=== PATIENT | male | born 1970 | race Caucasian/White ===

== ENCOUNTER 2023-12-23 19:18 | Emergency (ER) | payer OTHER, SELFPAY ==
[2023-12-23 19:23] VITALS: BP 157/113; PULSE 99; RESP 17; TEMP 36.1; O2SAT 98; BMI 36.1
--- NOTE | 2023-12-23 19:51 | DI.RAD.S_ITS ---
PROCEDURE: XR CHEST 1V INDICATIONS: HTN TECHNIQUE: One view of the chest was acquired. COMPARISON: None. FINDINGS: Surgical changes and devices: None. Lungs and pleura: On this semiupright portable chest examination, no large pneumothorax or large pleural effusions are seen. No focal infiltrates are seen. Mediastinum: The cardiac contours are within normal limits. The aorta demonstrates calcification and tortuosity. Bones and chest wall: No suspicious bony lesions. Age-appropriate bony degenerative changes are seen. Overlying soft tissues appear unremarkable. IMPRESSION: Portable chest within normal limits for age. Dictated by: Frank Barnes M.D. on 12/23/2023 at 19:32 Approved by: Frank Barnes M.D. on 12/23/2023 at 19:33
--- NOTE | 2023-12-23 20:10 | EKG_ITS ---
[address] [address] Test Date: 2023-12-23 Pat Name: Mamadou Acevedo Department: [facility] Room: Gender: Male [employer] Developer: CHECO : 1970 Requested By: Order Number: [id number] Reading MD: Gonzales Cain MD Measurements Intervals [place] Rate: 89 P: 62 [place]: 154 QRS: 23 QRSD: 102 T: 48 QT: 380 QTc: 462 Interpretive Statements Normal sinus rhythm Electronically Signed On 12-24-2023 8:35:59 PDT by Gonzales Cain MD
[2023-12-23 20:13] VITALS: PULSE 93; O2SAT 97
[2023-12-23 20:14] VITALS: BP 181/116; PULSE 93; O2SAT 96
[2023-12-23 20:15] LABS: Add Manual Diff / Slide Review NO; Basophils Absolute Auto 100 /uL (0-100); Eosinophils Absolute Auto 400 /uL (0-450); Eosinophils Percent Auto 3.3 % (2-4); Hematocrit 40.3 % (41-53); Hemoglobin 13.7 g/dL (13.5-17.5); Lymphocytes Absolute Auto 3300 /uL (1100-4500); Lymphocytes Percent Auto 30.4 % (25-40); Mean Corpuscular HGB Conc 34.1 % (30-36); Mean Corpuscular Hemoglobin 29.7 PG (26-34); Monocytes Absolute Auto 900 /uL (0-900); Monocytes Percent Auto 7.9 % (3-14); Neutrophils Absolute Auto 6200 /uL (1500-7000); Neutrophils Percent Auto 57.4 % (50-75); Platelet Count 338 X10^3/uL (150-400); Red Blood Cell Count 4.63 X10^6/uL (4.5-5.9); Red Cell Distribution Width 13.7 % (11.6-14.8); White Blood Cell Count 10.9 X10^3/uL (4.5-11.0)
[2023-12-23 20:26] LABS: Alanine Aminotransferase 21 IU/L (<50); Albumin Globulin Ratio 1.4 (1.0-2.8); Alkaline Phosphatase 65 U/L (38-126); Aspartate Aminotransferase 24 IU/L (17-59); BUN Creatinine Ratio 12.9 (6-22); Bilirubin Total 0.5 mg/dL (0.2-1.3); Blood Urea Nitrogen 18 mg/dL (9-20); Calcium 8.5 mg/dL (8.4-10.2); Carbon Dioxide 30 mmol/L (22-32); Chloride 103 mmol/L (98-107); Creatine Kinase 111 U/L (55-170); Estimated Glomerular Filt Rate 59 mL/min (>60); Globulin 2.8 g/dL (1.7-4.1); Glucose 104 mg/dL (70-100); HEMOLYSIS 28 (0-50); Lipase 108 U/L (23-300); Potassium 3.3 mmol/L (3.4-5.1); Sodium 139 mmol/L (137-145); Total Protein 6.8 g/dL (6.3-8.2)
[2023-12-23 20:30] VITALS: PULSE 94; RESP 21; O2SAT 95
[2023-12-23 20:31] VITALS: BP 179/107; PULSE 92; RESP 16; O2SAT 95
--- NOTE | 2023-12-23 20:36 | PC.NURSE ---
Patient had two episodes of dizziness, neither episodes occurred with exertion or position changes. The second episode the patient reports feeling very nauseous for five minutes, that has since resolved. Patient noticed that their blood pressure was elevated to around 150 systolic and a concerned friend told him that he should come in.
[2023-12-23 20:38] LABS: Troponin I < 0.012 ng/mL (0.01-0.034)
[2023-12-23 21:00] VITALS: BP 155/103; PULSE 85; RESP 14; O2SAT 95
--- NOTE | 2023-12-23 21:11 | ED.GENADULT ---
HPI - General Adult General Chief complaint: Hypertension Stated complaint: dizzy, high BP Time Seen by Provider: 12/23/23 19:50 Source: patient Mode of arrival: Ambulatory History of Present Illness HPI narrative: Patient is a 53-year-old male with a history high blood pressure. Did take his medications today. States that he would 2 distinct episodes today that lasted a couple of minutes of what he describes as dizziness. At the time was not having headache, palpitations, chest pain, shortness of breath or vision changes. After the 2nd episode he did have some nausea but no vomiting. He currently is asymptomatic. He states both times were not associated with any particular change in position. No sinus congestion or sore throat. He does describe room spinning like sensation. No numbness or tingling in his upper lower extremities. He did take his blood pressure at home after the 1st event and had a systolic blood pressure in the 150s to 160s. Related Data Allergies Allergy/AdvReac Type Severity Reaction Status Date / Time No Known Drug Allergies Allergy Verified 12/23/23 19:23 Review of Systems Review of Systems Narrative: See HPI Patient History Social History Smoking Status: Never smoker Smoking Status: Never smoker Substance Use Type: does not use Exam Initial Vital Signs Initial Vital Signs: Vital Signs Temperature 97.0 F L 12/23/23 19:23 Pulse Rate 99 H 12/23/23 19:23 Respiratory Rate 17 12/23/23 19:23 Blood Pressure 157/113 H 12/23/23 19:23 Pulse Oximetry 98 12/23/23 19:23 Oxygen Delivery Method Room Air 12/23/23 19:23 Const General: cooperative, comfortable and No ill appearing [facility] Head: normal to inspection and normocephalic Resp Effort & Inspection: normal respiratory effort Auscultation: clear to auscultation bilaterally Cardio Rate: regular rate Rhythm: regular rhythm Skin General: no rashes or lesions noted Neuro General: patient alert, patient awake, patient oriented x3 and moves all extremities Extrem General: No edema Course Orders Ordered: ED Orders 12/23/23 19:51 XR chest 1V Stat EKG-12 Lead Stat 12/23/23 20:05 Complete Blood Count AUTO DIFF Stat Comprehensive Metabolic Panel Stat Lipase Stat Troponin & CK Cardiac Panel Stat Vital Signs Vital signs: Vital Signs - 8 hr 12/23/23 19:23 12/23/23 20:13 12/23/23 20:14 Temperature 97.0 F L Pulse Rate 99 H 93 H 93 H Respiratory Rate 17 Blood Pressure 157/113 H Pulse Oximetry 98 97 96 Oxygen Delivery Method Room Air 12/23/23 20:14 12/23/23 20:30 12/23/23 20:31 Temperature Pulse Rate 94 H 92 H Respiratory Rate 21 16 Blood Pressure 181/116 H Pulse Oximetry 96 95 95 Oxygen Delivery Method Room Air 12/23/23 20:31 12/23/23 21:00 12/23/23 21:00 Temperature Pulse Rate 85 Respiratory Rate 14 Blood Pressure 179/107 H 155/103 H Pulse Oximetry 95 Oxygen Delivery Method Room Air Medical Decision Making Lab Data Lab results reviewed: Yes I reviewed the patient's lab results. 12/23/23 20:05 12/23/23 20:05 Labs: Lab Results 12/23/23 Range/Units 20:05 WBC 10.9 (4.5-11.0) X10^3/uL RBC 4.63 (4.5-5.9) X10^6/uL Hgb 13.7 (13.5-17.5) g/dL Hct 40.3 L (41-53) % MCV 87.0 (80-100) fL MCH 29.7 (26-34) PG MCHC 34.1 (30-36) % RDW 13.7 (11.6-14.8) % Plt Count 338 (150-400) X10^3/uL Neut % (Auto) 57.4 (50-75) % Lymph % (Auto) 30.4 (25-40) % Arthur % (Auto) 7.9 (3-14) % Eos % (Auto) 3.3 (2-4) % Baso % (Auto) 1.0 (0-2) % Neut # (Auto) 6200 (1502-0719) /uL Lymph # (Auto) 3300 (0898-8720) /uL Arthur # (Auto) 900 (0-900) /uL Eos # (Auto) 400 (0-450) /uL Baso # (Auto) 100 (0-100) /uL Sodium 139 (137-145) mmol/L Potassium 3.3 L (3.4-5.1) mmol/L Chloride 103 (98-107) mmol/L Carbon Dioxide 30 (22-32) mmol/L BUN 18 (9-20) mg/dL Creatinine 1.40 H (0.66-1.25) mg/dL Estimated GFR 59 L (>60) mL/min BUN/Creatinine Ratio 12.9 (6-22) Glucose 104 H (70-100) mg/dL Calcium 8.5 (8.4-10.2) mg/dL Total Bilirubin 0.5 (0.2-1.3) mg/dL AST 24 (17-59) IU/L ALT 21 (<50) IU/L Alkaline Phosphatase 65 (38-126) U/L Total Creatine Kinase 111 (55-170) U/L Troponin I < 0.012 (0.01-0.034) ng/mL Total Protein 6.8 (6.3-8.2) g/dL Albumin 4.0 (3.5-5.0) g/dL Globulin 2.8 (1.7-4.1) g/dL Albumin/Globulin Ratio 1.4 (1.0-2.8) Lipase 108 (23-300) U/L Imaging Data Chest x-ray: Radiologist's Impression: PROCEDURE: XR CHEST 1V INDICATIONS: HTN TECHNIQUE: One view of the chest was acquired. COMPARISON: None. FINDINGS: Surgical changes and devices: None. Lungs and pleura: On this semiupright portable chest examination, no large pneumothorax or large pleural effusions are seen. No focal infiltrates are seen. Mediastinum: The cardiac contours are within normal limits. The aorta demonstrates calcification and tortuosity. Bones and chest wall: No suspicious bony lesions. Age-appropriate bony degenerative changes are seen. Overlying soft tissues appear unremarkable. IMPRESSION: Portable chest within normal limits for age. ECG Data Attestation: I personally reviewed and interpreted this ECG as follows: Interpretation: Sinus rhythm Ventricular rate of 89 Normal axis Normal QRS Normal QTC No ST T wave changes MDM Narrative Medical decision making narrative: Patient was not currently asymptomatic. Sinus rhythm on his EKG. For what he describes the dizzy his more consistent with a vertigo. He was not have any URI symptoms. Low suspicion for CVA/TIA. Low suspicion for ACS. We did discuss that his stability of a transient arrhythmia in the limitations of her workup for that here in the ER. Will discharge patient home with strict return precautions and instructions to contact his primary doctor about the discussions of having a Holter monitor. He expressed understanding and agreement plan. Discharge Plan Departure Patient Disposition: Home Clinical Impression: Hypertension, Vertigo Instructions: DI for High Blood Pressure Activity Restrictions/Additional Instructions: I do recommend that you continue to take all of your medications as directed. Continue to take your blood pressure at home and record the values and talk with your primary doctor about any potential changes in medications. If you start to develop chest pain or shortness of breath please return to the emergency department. Stand Alone Forms: Patient Portal/API
== END 2023-12-23 21:20 | disposition home or self-care (01) ==
PROVIDERS: Emergency Provider Emergency Medicine
DX: I10 Essential (primary) hypertension (principal); R42 Dizziness and giddiness; R07.9 Chest pain, unspecified
CPT/HCPCS: 36415; 71045; 80053; 82550; 83690; 84484; 85025; 93005; 99283; 99284